=== PATIENT | female | born 2000 | race African-American/Black ===

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

== ENCOUNTER 2021-01-20 12:52 | Outpatient (CLI) | payer OTHER, SELFPAY ==
--- NOTE | ~2021-01-20 | US_ITS ---
EXAMINATION: US OB follow up EXAM DATE: 01/20/2021 13:34 INDICATION: Routine care. Early 3rd trimester. TECHNIQUE: Pelvic obstetrical transabdominal sonogram was performed by a technologist. There are mu ltiple grayscale and Doppler images available for interpretation. Comparison is made to prior examina tion from 08/29/2020. FINDINGS: There is a single fetus identified in vertex presentation with a heart rate of 166 beats pe r minute. The placenta is located in the anterior position. There is no sonographic evidence of retr oplacental hemorrhage identified. The amniotic fluid index is 15.0 centimeters, which is normal. BIOMETRIC DATA: Biparietal diameter (BPD): 7.5 cm ----------------> 30 weeks 1 day. Head circumference (HC): 27.5 cm ----------------> 30 weeks 0 days. Abdominal circumference (AC): 25.7 cm ----------> 29 weeks 6 days. Femur length (FL): 5.6 cm --------------------------> 29 weeks 3 days. These measurements are concordant. HC/AC ratio is 1.07 (The 5th -- 95th percentile range is 0.98-1.19. Estimated weight is 1451 g +/- 218 g. This is the 94th percentile when the currently reported clinical gestation age 28 weeks 0 days, clinical estimated date of delivery (LEANNE-OPE) 04/14/2021 is use d. estimated gestational age based on measurements from this exam is 29 weeks 6 days, with an e stimated date of delivery (LEANNE-AUA) 04/01. IMPRESSION: 1. Single fetus in vertex presentation with heart rate 166 beats per minute. 2. Estimated weight of 1451 grams, 94th percentile using the currently reported clinical gesta tion age of 28 weeks 0 days, LEANNE(OPE) 04/14. 3. Normal NOLA 15.0 cm. Reviewed, dictated and finalized at location A. IMPRESSION: 1. Single fetus in vertex presentation with heart rate 166 beats per minute. 2. Estimated weight of 1451 grams, 94th percentile using the currently r eported clinical gestation age of 28 weeks 0 days, LEANNE(OPE) 8/3. 3. Normal NOLA 15.0 cm.
== END 2021-01-20 12:53 | disposition home or self-care (01) ==
PROVIDERS: Visit Provider Physician Assistant
DX: Z34.90 Encounter for supervision of normal pregnancy, unspecified, unspecified trimester (principal); Z3A.28 28 weeks gestation of pregnancy
CPT/HCPCS: 76816

== ENCOUNTER 2021-03-04 12:10 | Outpatient (CLI) | payer OTHER, SELFPAY ==
--- NOTE | ~2021-03-04 | US_ITS ---
EXAMINATION: US OB follow up DATE: 03/04/2021 13:05 INDICATION: Large for gestational age during third trimester TECHNIQUE: Real-time ultrasound of the pelvis was performed. The interpreting radiologist was not pre sent for the study. COMPARISON: 08/29/2020 FINDINGS: There is a single living fetus in vertex presentation. The placenta is anterior. heart rate is 145 beats per minute (bpm). The amniotic fluid index is 17.4 cm, which is normal (5th%-95%: 8.1-44. 8 cm at 34 weeks estimated gestational age). The following biometric data were obtained: BPD: 8.7 cm -> 35 weeks 1 days Head circumference: 30.9 cm -> 34 weeks 4 days Abdominal circumference: 29.9 cm -> 33 weeks 6 days Femur length: 6.2 cm -> 32 weeks 2 days These measurements are concordant. Head circumference to abdominal circumference ratio: 1.03 (normal range 0.95-1.11). Estimated weight: 2232 g (+/-) 335 g or 4 lbs. 15 oz. (+/-) 12 oz. IMPRESSION: 1. Single living fetus in vertex presentation with heart rate of 145 bpm. 2. Normal amniotic fluid index of 17.4 cm. 3. Estimated weight is 28th percentile by Hadlock criteria when 04/14/2021 is used as the estimat ed date of delivery (LEANNE). Please correlate with clinical information or earlier ultrasounds for most accurate LEANNE. Reviewed, dictated and finalized at location A. IMPRESSION: 1. Single living fetus in vertex presentation with heart rate of 145 bpm. 2. Normal amniotic fluid index of 17.4 cm. 3. Estimated weight is 28th percentile by Hadlock criteria when 04/14/2021 is used as the estimated date of delivery (LEANNE). Please correlate with clinical information or earlier ultrasounds for most accurate LEANNE.
== END 2021-03-04 12:11 | disposition home or self-care (01) ==
PROVIDERS: Visit Provider Physician Assistant
DX: O35.9 Maternal care for (suspected) fetal abnormality and damage, unspecified (principal); Z3A.30 30 weeks gestation of pregnancy
CPT/HCPCS: 76816

== ENCOUNTER 2021-03-21 04:15 | Inpatient (IN) | payer OTHER, SELFPAY ==
[2021-03-21] VITALS (320 sets, daily range): BP systolic 78–199; BP diastolic 25–179; PULSE 29–254; TEMP 36.2–38.4; O2SAT 72–100; BMI 31.4
--- NOTE | 2021-03-21 04:38 | OBADM ---
This patient, Akhil Bhakta, admitted to the OB room Labor/Delivery/Recovery 103 for observation. Patient/family oriented to hospital policies and general routines including ID bracelet, bed and alarms, visiting hours, pain management, procedures, bathroom and other care routines, personal items, smoking policy, room service/diet, and visiting hours. Patient/Family are encouraged to report perceived risks to care and to ask questions if they do not understand what they are told or what they should do.
--- NOTE | 2021-03-21 05:13 | LDADM ---
This patient, Akhil Bhakta, was admitted to Labor/Delivery/Recovery 103 on 03/21/21 at 04:15. Plans for labor, pain management and were discussed with patient. Patient/family oriented to hospital policies and general routines including ID bracelet, bed and alarms, visiting hours, pain management, procedures, bathroom and other care routines, personal items, smoking policy, room service/diet and guest tray routines, infant security routines, and visiting hours. Patient/Family are encouraged to report perceived risks to care and to ask questions if they do not understand what they are told or what they should do. See OBIX for further documentation.
[2021-03-21] MEDS: LACTATED RINGERS 1,000 ML 125 ML IV CONT ×5 (05:39→21:35)
[2021-03-21] MEDS: AMPICILLIN 2 GM/NS 100 ML 2 GM/100 ML BAG IVPB (05:39)
[2021-03-21 06:00] LABS: Basophils Absolute Auto 0.1 K/mm3 (0.0-0.1); Basophils Percent Auto 0.4 % (0.2-1.2); Eosinophils Absolute Auto 0.3 K/mm3 (0-0.3); Eosinophils Percent Auto 1.9 % (0-4.4); Hematocrit 32.9 % (37.0-47.0); Hemoglobin 10.8 g/dL (12.0-15.0); Immature Granulocyte Absolute 0.18 K/mm3 (0.00-0.031); Immature Granulocyte Percent A 1.3 % (0-0.5); Lymphocytes Absolute Auto 3.81 K/mm3 (0.9-3.2); Lymphocytes Percent Auto 27.3 % (18.3-44.2); Mean Corpuscular HGB Conc 32.8 g/dl (32-36); Mean Corpuscular Hemoglobin 26.5 pg (26-34); Mean Corpuscular Volume 80.6 fl (80-100); Mean Platelet Volume 12.2 fl (7.4-10.4); Monocytes Percent Auto 7.2 % (2.6-8.5); Neutrophils Absolute Auto 8.7 K/mm3 (1.3-6.7); Neutrophils Percent Auto 61.9 % (45.5-73.1); Platelet Count Result 233 k/mm3 (150-375); Red Blood Count 4.08 M/mm3 (4.2-5.4); Red Cell Distribution Width 13.6 % (11.5-14.5)
[2021-03-21 06:10] LABS: Alanine Aminotransferase 9 U/L (4-35); Albumin Level 3.9 g/dL (3.7-5.6); Alkaline Phosphatase 303 U/L (45-116); Anion Gap 7 mmol/L (8-16); Aspartate Amino Transferase 24 U/L (14-36); Bilirubin,Total 0.2 mg/dL (0.2-1.3); Blood Urea Nitrogen 6 mg/dL (8-21); Calcium 9.3 mg/dL (8.9-10.7); Carbon Dioxide 22 mmol/L (22-30); Chloride 106 mmol/L (98-107); Estimated CRCL calculation 124 ml/min; Estimated Glomerular Filt Rate > 60; Glucose 112 mg/dL (65-105); Sodium 135 mmol/L (134-143)
--- NOTE | 2021-03-21 06:24 | WPDANESEPP ---
Anes - Eval Pre Procedure Procedure: labor epidural Date/Time: 03/21/21 06:24 Surgeon: mike Pre Op Diagnosis: Leaking, Side Pain Patient Data Age: 20 Gender: F Height: 1.57 m Weight: 78 kg Last Vital Signs Temp 36.8 C 03/21/21 04:29 Pulse 83 03/21/21 06:01 BP 134/70 03/21/21 06:01 Allergies Allergy/AdvReac Type Severity Reaction Status Date / Time No Known Allergies Allergy Verified 03/21/21 05:38 Home Medications Medication Instructions Recorded Confirmed Type PNV,calcium 43-[id number]-bhwcg acid 1 tablet PO DAILY 03/21/21 03/21/21 History [ Vitamin Plus Low Iron] acyclovir 800 mg PO DAILY 03/21/21 03/21/21 History Laboratory Tests 03/21/21 03/21/21 03/21/21 05:33 05:33 05:33 WBC 14.0 K/mm3 H K/mm3 (4.5-10.0) RBC 4.08 M/mm3 L M/mm3 (4.2-5.4) Hgb 10.8 g/dL L g/dL (12.0-15.0) Hct 32.9 % L % (37.0-47.0) MCV 80.6 fl fl (80-100) MCH 26.5 pg pg (26-34) MCHC 32.8 g/dl g/dl (32-36) RDW 13.6 % % (11.5-14.5) Plt Count 233 k/mm3 k/mm3 (150-375) MPV 12.2 fl H fl (7.4-10.4) Immature Gran % (Auto) 1.3 % H % (0-0.5) Neut % (Auto) 61.9 % % (45.5-73.1) Lymph % (Auto) 27.3 % % (18.3-44.2) Williams % (Auto) 7.2 % % (2.6-8.5) Eos % (Auto) 1.9 % % (0-4.4) Baso % (Auto) 0.4 % % (0.2-1.2) Lymph # (Auto) 3.81 K/mm3 H K/mm3 (0.9-3.2) Williams # (Auto) 1.0 K/mm3 H K/mm3 (0.1-0.6) Eos # (Auto) 0.3 K/mm3 K/mm3 (0-0.3) Baso # (Auto) 0.1 K/mm3 K/mm3 (0.0-0.1) Abs Immat Gran (auto) 0.18 K/mm3 H K/mm3 (0.00-0.031) Absolute Neuts (auto) 8.7 K/mm3 H K/mm3 (1.3-6.7) Absolute Nucleated RBC 0.0 K/mm3 K/mm3 (0.0-0.012) Nucleated RBC % 0.0 % % (0.0-0.2) Sodium Potassium Chloride Carbon Dioxide Anion Gap BUN Creatinine Estim Creat Clear Calc Estimated GFR Glucose Uric Acid 4.0 mg/dL mg/dL (3.0-5.9) Calcium Total Bilirubin AST ALT Alkaline Phosphatase Total Protein Albumin Urine Opiates Screen Urine Methadone Screen Ur Barbiturates Screen Ur Phencyclidine Scrn Ur Amphetamine Screen U Benzodiazepines Scrn Urine Cocaine Screen U Cannabinoids Screen RPR Pending Hep Bs Antigen HIV 1&2 Ab/P24 Ag 4thGn Rubella IgG Antibody 03/21/21 03/21/21 03/21/21 05:33 05:33 05:33 WBC RBC Hgb Hct MCV MCH MCHC RDW Plt Count MPV Immature Gran % (Auto) Neut % (Auto) Lymph % (Auto) Williams % (Auto) Eos % (Auto) Baso % (Auto) Lymph # (Auto) Williams # (Auto) Eos # (Auto) Baso # (Auto) Abs Immat Gran (auto) Absolute Neuts (auto) Absolute Nucleated RBC Nucleated RBC % Sodium Potassium Chloride Carbon Dioxide Anion Gap BUN Creatinine Estim Creat Clear Calc Estimated GFR Glucose Uric Acid Calcium Total Bilirubin AST ALT Alkaline Phosphatase Total Protein Albumin Urine Opiates Screen Urine Methadone Screen Ur Barbiturates Screen Ur Phencyclidine Scrn
[2021-03-21 06:32] LABS: Amphetamine Screen Urine Negative (Negative); Barbiturate Screen Urine Negative (Negative); Benzodiazepines Screen Urine Negative (Negative); Cannabinoid Screen Urine Positive (Negative); Cocaine Screen Urine Negative (Negative); Methadone Screen Urine Negative (Negative); Opiate Screen Urine Negative (Negative); Phencyclidine Screen Urine Negative (Negative)
--- NOTE | 2021-03-21 06:38 | PM.IMHP ---
H&P: HPI History of Present Illness Date/Time: 03/21/21 06:18 Akhil is a 20yo @ 36.4wks (LEANNE 04/14/21) who presented to L&D w/ painful contractions and concern for leakage of fluid since 2129 on 03/16/21. ROM + was collected and was positive; she has been aleksey on the monitor (cervix 1/75/-3); heart rate tracing is reassuring and she denies fever or tenderness (WBC 14)-- so no overt concerns for chorioamnionitis at this time. She reports care with Dr. Farrell ( not available, but pt endorses being GBS +), so all labs have been ordered. She was also found to have elevated blood pressures; she denies ORTIZ, vision changes, CP, or SOB. 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 Chief Complaint: pain and leakag of fluid Review of Systems Review of Systems: All systems reviewed & are unremarkable except as noted in HPI and below (HPI) [facility] Social History Social History Smoking status: Never smoker Substance use: never Gender identity (if verbalized by the patient): Female Spiritual care concerns: No Meds Home Medications and Allergies Home Medications Medication Instructions Recorded Confirmed Type PNV,calcium 16-[id number]-[id number] acid 1 tablet PO DAILY 03/21/21 03/21/21 History [ Vitamin Plus Low Iron] acyclovir 800 mg PO DAILY 03/21/21 03/21/21 History Allergies Allergy/AdvReac Type Severity Reaction Status Date / Time No Known Allergies Allergy Verified 03/21/21 05:38 Vital Signs Vital Signs - 24 hr 03/21/21 04:29 03/21/21 04:35 03/21/21 04:46 Temperature 36.8 C Pulse Rate 106 H 85 89 Blood Pressure 137/107 H 123/63 143/83 H 03/21/21 05:01 03/21/21 06:01 Temperature Pulse Rate 85 83 Blood Pressure 129/65 134/70 Exam Const: General: cooperative, healthy appearing and in distress (with contractions) moderate Resp: Effort & Inspection: normal respiratory effort and able to speak in complete sentences Cardio: Rate: regular rate GI: GI Palp: No abdominal tenderness and Yes Soft to palpation : Other: FHT's: 140's/ mod mae/ + accels/ no decels - cat 1 TOCO: coupled contractions q5min Cervix: 1/75/-3 Membranes: ROM+ positive for ROM Presentation: cephalic H&P: Results Labs Labs: Short CBC 03/21/21 Range/Units 05:33 WBC 14.0 H (4.5-10.0) K/mm3 Hgb 10.8 L (12.0-15.0) g/dL Hct 32.9 L (37.0-47.0) % Plt Count 233 (150-375) k/mm3 BMP 03/21/21 05:33 Sodium 135 Potassium 4.0 Chloride 106 Carbon Dioxide 22 BUN 6 L Creatinine 0.60 L Glucose 112 H Calcium 9.3 Liver Function 03/21/21 Range/Units 05:33 Total Bilirubin 0.2 (0.2-1.3) mg/dL AST 24 (14-36) U/L ALT 9 (4-35) U/L Alkaline Phosphatase 303 H (45-116) U/L Albumin 3.9 (3.7-5.6) g/dL Assessment and Plan Assessment and plan (1) premature rupture of membranes (PPROM) with onset of labor after 24 hours of rupture in third trimester, antepartum: Code(s): O42.113 - premature rupture of membranes, onset of labor more than 24 hours following rupture, third trimester Status: Acute (2) Elevated blood pressure affecting in third trimester, antepartum: Code(s): O16.3 - Unspecified maternal hypertension, third trimester Status: Acute Additional Plan - Admit to L&D - Ampicillin started; will continue to monitor very closely for signs of chorio-- currently afebrile w/o tenderness and FHT reassuring - Continuous monitoring - Pitocin to be started after epidural to obtain adequate contractions - Anesthesia consult for epidural - BP monitoring; pt asymptomatic, labs pending
--- NOTE | 2021-03-21 06:38 | WPDHPUPDATE1 ---
History and Physical Update Update Date/Time: 03/21/21 06:38 History and Physical has been reviewed, including an updated exam of the patient. There are NO changes in the patient's condition. Risks, benefits, and alternatives have been discussed and questions answered. Patient agrees to proceed with procedure.
[2021-03-21 07:11] LABS: HIV 1/2 Ab P24 Ag Result Negative (Negative); Rubella IgG Antibody 9.8 IU/ML
--- NOTE | 2021-03-21 07:24 | WPDANESEPP ---
Anes - Eval Pre Procedure Procedure: Labor Epidural Date/Time: 03/21/21 07:24 Surgeon: Jami Preop Diagnosis: Labor Pain Pre Op Diagnosis: Leaking, Side Pain Patient Data Age: 20 Gender: F Height: 1.57 m Weight: 78 kg Last Vital Signs Temp 36.8 C 03/21/21 04:29 Pulse 87 03/21/21 07:23 BP 107/67 03/21/21 07:23 Pulse Ox 98 03/21/21 07:23 Allergies Allergy/AdvReac Type Severity Reaction Status Date / Time No Known Allergies Allergy Verified 03/21/21 05:38 Home Medications Medication Instructions Recorded Confirmed Type PNV,calcium 04-lewx-[id number] acid 1 tablet PO DAILY 03/21/21 03/21/21 History [ Vitamin Plus Low Iron] acyclovir 800 mg PO DAILY 03/21/21 03/21/21 History Laboratory Tests 03/21/21 03/21/21 03/21/21 05:33 05:33 05:33 WBC 14.0 K/mm3 H K/mm3 (4.5-10.0) RBC 4.08 M/mm3 L M/mm3 (4.2-5.4) Hgb 10.8 g/dL L g/dL (12.0-15.0) Hct 32.9 % L % (37.0-47.0) MCV 80.6 fl fl (80-100) MCH 26.5 pg pg (26-34) MCHC 32.8 g/dl g/dl (32-36) RDW 13.6 % % (11.5-14.5) Plt Count 233 k/mm3 k/mm3 (150-375) MPV 12.2 fl H fl (7.4-10.4) Immature Gran % (Auto) 1.3 % H % (0-0.5) Neut % (Auto) 61.9 % % (45.5-73.1) Lymph % (Auto) 27.3 % % (18.3-44.2) Carson % (Auto) 7.2 % % (2.6-8.5) Eos % (Auto) 1.9 % % (0-4.4) Baso % (Auto) 0.4 % % (0.2-1.2) Lymph # (Auto) 3.81 K/mm3 H K/mm3 (0.9-3.2) Carson # (Auto) 1.0 K/mm3 H K/mm3 (0.1-0.6) Eos # (Auto) 0.3 K/mm3 K/mm3 (0-0.3) Baso # (Auto) 0.1 K/mm3 K/mm3 (0.0-0.1) Abs Immat Gran (auto) 0.18 K/mm3 H K/mm3 (0.00-0.031) Absolute Neuts (auto) 8.7 K/mm3 H K/mm3 (1.3-6.7) Absolute Nucleated RBC 0.0 K/mm3 K/mm3 (0.0-0.012) Nucleated RBC % 0.0 % % (0.0-0.2) Sodium Potassium Chloride Carbon Dioxide Anion Gap BUN Creatinine Estim Creat Clear Calc Estimated GFR Glucose Uric Acid 4.0 mg/dL mg/dL (3.0-5.9) Calcium Total Bilirubin AST ALT Alkaline Phosphatase Total Protein Albumin Urine Opiates Screen Urine Methadone Screen Ur Barbiturates Screen Ur Phencyclidine Scrn Ur Amphetamine Screen U Benzodiazepines Scrn Urine Cocaine Screen U Cannabinoids Screen RPR Pending Hep Bs Antigen HIV 1&2 Ab/P24 Ag 4thGn Rubella IgG Antibody Blood Type Antibody Screen 03/21/21 03/21/21 03/21/21 05:33 05:33 05:33 WBC RBC Hgb Hct MCV MCH MCHC RDW Plt Count MPV Immature Gran % (Auto) Neut % (Auto) Lymph % (Auto) Carson % (Auto) Eos % (Auto) Baso % (Auto) Lymph # (Auto) Carson # (Auto) Eos # (Auto) Baso # (Auto) Abs Immat Gran (auto) Absolute Neuts (auto) Absolute Nucleated RBC Nucleated RBC % Sodium Potassium Chloride Carbon Dioxide Anion Gap BUN Creatinine Estim Creat Clear Calc Estimated GFR Glucose Uric Acid Calcium Total Bilirubin AST ALT Alkaline Phosphatase Total Protein Albumin Urine Opiates Screen
[2021-03-21] MEDS: OXYTOCIN 30 UNITS/NS 500 ML 30 UNITS/500 ML BAG IV CONT (07:33)
[2021-03-21 08:09] LABS: Hepatitis B Surface Antigen Negative (Negative)
--- NOTE | 2021-03-21 09:16 | PM.OBPNLAB ---
Pain Control Date/time seen: 03/21/21 09:16 Pain control: epidural Pelvic Exam Dilation (cm): 2 (.5) Effacement (%): 70 station: -2 Amniotic membrane status: Ruptured (SROM; forebag AROMed @ 0915-- IUPC placed) Contractions Monitor mode: External Contraction frequency: 2 Contraction pattern: Regular Status status: Category ll Comments: 140's/ mod mae/ + accels/ occasional variable - reassuring Assessment and Plan Pitocin rate (mU/min): 4 Assessment: induction ongoing Plan: continuous present management Comments: - continue amp, no signs of chorio - clear fluid noted when forebag ruptured
[2021-03-21] MEDS: AMPICILLIN 1 GM/NS 50 ML 1 GM/50 ML BAG IVPB ×4 (09:22→21:27)
[2021-03-21] MEDS: ACETAMINOPHEN 500 MG TABLET 1000 MG PO (22:40)
[2021-03-21] MEDS: GENTAMICIN SULFATE INJ 305 MG in DEXTROSE 5% 100 ML 107.63 MG IVPB (23:42)
[2021-03-22] VITALS (30 sets, daily range): BP systolic 101–153; BP diastolic 52–88; PULSE 79–135; RESP 14–18; TEMP 36.6–38.9; O2SAT 84–100
[2021-03-22] MEDS: miSOPROStol 200 MCG TABLET 800 MCG (02:01)
--- NOTE | 2021-03-22 02:07 | PM.OBPRVD ---
OB - Delivery Note Procedure Delivery date: 03/22/21 events: Premature Rupture of Membrane Intrapartal events: Prolonged Active Phase and Chorioamnionitis (on amp/gent) Induction method: per pitocin protocol Delivery augmentation: rupture of membranes Delivery monitor: external FHT and internal uterine Route of delivery: Laceration Description: None Quantitative Blood Loss (ml): 150 Anesthesia type: Epidural Disposition: floor Baby Date of : 03/22/21 Time of : 01:40 Weeks of gestation at delivery: 36 (.5) Infant gender: Male Weight (pounds): 6 Weight (ounces): 7 presentation: vertex position: Right Occiput Anterior Placenta delivery description: Expressed cord vessel description: 3 Vessels score one minute: 6 score five minutes: 9 Narrative: Patient had a protracted labor pattern and did develop fever. She was diagnosed with chorioamnionitis and started on Gentamicin. She was already on ampicillin due to prematurity. Patient then endorsed significant pelvic pain and pressure. Her epidural was bolused by anesthesia and she was then comfortable. She was examined and found be completely dilated. With good maternal effort she pushed for approximately 45 minutes. She delivered the head over intact perineum. No nuchal cord was palpated. She then easily delivered the shoulders and body without complications. The umbilical cord was then clamped and cut. The baby was taken to warmer by the pediatric nurse for evaluation. After stimulation spontaneous cry was heard. A segment of the cord was collected for cord gases. The remaining cord blood was collected for typing. With Pitocin running and gentle downward traction on the cord, the placenta delivered without complications. Brisk bleeding was then noted and a bimanual massage was performed, slight uterine atony was noted. Patient was examined and a small right periurethral laceration was noted but hemostatic and was not repaired. Misoprostol 600mcg was placed rectally. Sponge, lap, and instrument counts were correct at the end the procedure. Mom and baby were left bonding in the birthing suite in stable condition.
[2021-03-22] MEDS: OXYTOCIN 30 UNITS/NS 500 ML 30 UNITS/500 ML BAG 125 UNITS IV CONT (02:21)
[2021-03-22] MEDS: AMPICILLIN 1 GM/NS 50 ML 1 GM/50 ML BAG IVPB (04:00)
[2021-03-22] MEDS: ACETAMINOPHEN 500 MG TABLET 1000 MG PO (04:06)
[2021-03-22] MEDS: IBUPROFEN 600 MG TABLET PO ×2 (06:03→15:01)
--- NOTE | 2021-03-22 06:40 | PC.NURSE ---
0504 on 03/22/2021 Patient transferred to post room #286 via wheelchair. Support person present. Oriented to unit, room, information board, rooming in, admission packet and security measures. Patient verbalizes understanding.
[2021-03-22] MEDS: SODIUM CHLORIDE 0.9% IV 100 ML 50 ML (09:19)
[2021-03-22] MEDS: AMPICILLIN 2 GM/NS 100 ML 2 GM/100 ML BAG IVPB ×3 (09:19→21:16)
--- NOTE | 2021-03-22 11:15 | PM.OBPNVD ---
OB - PN: Subj Subjective Date/time seen: 03/22/21 11:09 PPD #0 Akhil reports doing well today. She is sore but otherwise reports her pain is controlled w/ PO meds. She reports her bleeding is light. She has tolerated regular diet. She has voided and passed gas. She has ambulated and already showered today. She has been continued on antibiotics for chorio (last fever @ 0500 this morning). She is bottle feeding. She would like her son circumcised. She has had elevated blood pressures; denies ORTIZ, vision changes, CP, SOB. She denies chills, N/V, palpitations, or dizziness. OB - PN: Obj Data Labs CBC & Chem 7: 03/22/21 14:59 03/22/21 15:00 Labs: Laboratory Results - last 24 hr 03/22/21 03/22/21 03/22/21 14:59 15:00 16:29 WBC 18.8 H RBC 3.59 L Hgb 9.3 L Hct 29.1 L MCV 81.1 MCH 25.9 L MCHC 32.0 RDW 14.0 Plt Count 192 MPV 11.4 H Immature Gran % (Auto) 1.1 H Neut % (Auto) 71.9 Lymph % (Auto) 17.3 L Lander % (Auto) 9.0 H Eos % (Auto) 0.5 Baso % (Auto) 0.2 Lymph # (Auto) 3.25 H Lander # (Auto) 1.7 H Eos # (Auto) 0.1 Baso # (Auto) 0.0 Abs Immat Gran (auto) 0.20 H Absolute Neuts (auto) 13.6 H Absolute Nucleated RBC 0.0 Nucleated RBC % 0.0 Sodium 136 Potassium 3.7 Chloride 106 Carbon Dioxide 23 Anion Gap 7 L BUN 8 Creatinine 0.80 Estim Creat Clear Calc 95 Estimated GFR > 60 Glucose 75 Calcium 8.7 L Total Bilirubin 0.6 AST 32 ALT 9 Alkaline Phosphatase 214 H Total Protein 6.0 L Albumin 3.0 L U Random Total Protein 17 Urine Creatinine 35.6 Protein/Creat Ratio 2 0.48 H OB - PN A/P Assessment and Plan (1) delivery: Code(s): O60.10X0 - labor with delivery, unspecified trimester, not applicable or unspecified Status: Acute (2) Vaginal delivery: Code(s): O80 - Encounter for full-term uncomplicated delivery Status: Acute (3) Pre-eclampsia: Qualifiers: Trimester: third trimester Qualified Code(s): O14.93 - Unspecified pre-eclampsia, third trimester Code(s): O14.90 - Unspecified pre-eclampsia, unspecified trimester Status: Acute (4) Chorioamnionitis: Qualifiers: Fetus number: single or unspecified fetus Trimester: third trimester Qualified Code(s): O41.1230 - Chorioamnionitis, third trimester, not applicable or unspecified Code(s): O41.1290 - Chorioamnionitis, unspecified trimester, not applicable or unspecified Status: Acute Plan day: 0 Comments: - Continue amp/gent x 24hrs ; last fever 0500 on 03/22/21 - Labs stable - BPs in normal to mild range; pt asymptomatic - Meeting milestones; likely d/c home on 03/24/21 - Son circumcised w/o issue Time Spent With Patient Time: Total time spent is greater than 50% in coordination of care (as documented) at patient's floor/unit and/or counseling patient: Review of Systems Review of Systems: All systems reviewed & are unremarkable except as noted in HPI and below (HPI) Exam Const: General: cooperative, healthy appearing, comfortable and no acute distress Resp: Effort & Inspection: normal respiratory effort and able to speak in complete sentences Auscultation: clear to auscultation bilaterally Cardio: Rate: regular rate GI: Inspection: normal to inspection and non-distended GI Palp: No abdominal tenderness and Yes Soft to palpation Auscultation: normal bowel sounds : Other: fundus firm; mild tendeness Skin: General skin exam: normal color Neuro: General: patient oriented x3 Extrem: General: normal to inspection Psych: Appearance: grossly normal Affect: normal affect Attitude: cooperative
[2021-03-22] MEDS: ACETAMINOPHEN 325 MG TABLET 650 MG PO (15:02)
[2021-03-22 15:18] LABS: Basophils Percent Auto 0.2 % (0.2-1.2); Eosinophils Absolute Auto 0.1 K/mm3 (0-0.3); Eosinophils Percent Auto 0.5 % (0-4.4); Hematocrit 29.1 % (37.0-47.0); Hemoglobin 9.3 g/dL (12.0-15.0); Immature Granulocyte Percent A 1.1 % (0-0.5); Lymphocytes Absolute Auto 3.25 K/mm3 (0.9-3.2); Lymphocytes Percent Auto 17.3 % (18.3-44.2); Mean Corpuscular Hemoglobin 25.9 pg (26-34); Mean Corpuscular Volume 81.1 fl (80-100); Mean Platelet Volume 11.4 fl (7.4-10.4); Monocytes Absolute Auto 1.7 K/mm3 (0.1-0.6); Neutrophils Absolute Auto 13.6 K/mm3 (1.3-6.7); Neutrophils Percent Auto 71.9 % (45.5-73.1); Platelet Count Result 192 k/mm3 (150-375); Red Blood Count 3.59 M/mm3 (4.2-5.4); White Blood Count 18.8 K/mm3 (4.5-10.0)
[2021-03-22 15:28] LABS: Alanine Aminotransferase 9 U/L (4-35); Alkaline Phosphatase 214 U/L (45-116); Anion Gap 7 mmol/L (8-16); Aspartate Amino Transferase 32 U/L (14-36); Bilirubin,Total 0.6 mg/dL (0.2-1.3); Blood Urea Nitrogen 8 mg/dL (8-21); Calcium 8.7 mg/dL (8.9-10.7); Carbon Dioxide 23 mmol/L (22-30); Chloride 106 mmol/L (98-107); Estimated CRCL calculation 95 ml/min; Estimated Glomerular Filt Rate > 60; Glucose 75 mg/dL (65-105); Potassium 3.7 mmol/L (3.4-5.0); Sodium 136 mmol/L (134-143)
[2021-03-22 16:41] LABS: Creatinine Urine 35.6 mg/dL; Total Protein Urine Random 17 mg/dL; Ur Ttl Prot Creatinine Ratio 0.48 mg/mg (0-0.20)
--- NOTE | 2021-03-22 18:59 | PC.NURSE ---
03/22/2021 at 1840. Upon my completion of my assessment of Akhil, I asked the patient her taking Acyclovir while she was . I took it sometimes . It made me sick. I discussed the importance of Akhil the possibility of transferring the HSV to baby. I discussed the high importance of using excellent hand hygiene and calling the DrHarsh for medication if she notices she EVER has an outbreak. Akhil states her significant other is unaware of her taking acyclovir and her having HSV antibodies. We discussed if her significant other develops any symptoms he also needs to contact his doctor immediately. I then told mother that baby may be effected neurologically by the HSV which may manifest itself as seizures, poor eating, not acting right, etc. And, if baby shows ANY signs like these she should contact baby's doctor immediately. Mother states understanding.
[2021-03-22] MEDS: GENTAMICIN SULFATE INJ 305 MG in DEXTROSE 5% 100 ML 107.63 MG IVPB (23:30)
[2021-03-23 04:26] LABS: Hemoglobin 9.1 g/dL (12.0-15.0)
[2021-03-23] MEDS: AMPICILLIN 2 GM/NS 100 ML 2 GM/100 ML BAG IVPB (05:56)
[2021-03-23 07:45] VITALS: BP 116/71; PULSE 73; RESP 16; TEMP 36.6; O2SAT 100
[2021-03-23 07:57] LABS: Rapid Plasma Reagin Non-Reactive (NonReactive)
[2021-03-23] MEDS: POLYSACCHARIDE IRON COMPLEX 150 MG CAPSULE PO ×2 (08:58→16:59)
[2021-03-23] MEDS: DOCUSATE SODIUM 100 MG CAPSULE PO ×2 (08:58→16:59)
[2021-03-23] MEDS: IBUPROFEN 600 MG TABLET PO (08:59)
--- NOTE | 2021-03-23 11:08 | PCCCNOTE ---
Addendum entered by CARLOS Briggs 03/23/21 14:09: 1400: Received email from [facility] that states: The information has been reviewed and assessed by a Assistant Merchandise Manager. The information you provided met the criteria for a Child Welfare Referral to offer services/provide support to the involved family. Addendum entered by Kaia Abdi, BRIDGE CONSTRUCTION INSPECTOR 03/23/21 11:34: 1130: Spoke with Silvestre with [facility] who reports they are not investigating this [facility] report. Original Note: Care Coordination: Met with pt. after receiving a referrals that reports marijuana use during . Spoke with pt. and pt's boyfriend at bedside. Pt. reports using marijuana during due to it stimulating her appetite. Baby Boy's urine drug screen was also positive; his meconium is pending at this time. Pt. reports she and baby boy will be living with her boyfriend Lamine in [place], [place]. Pt. reports this is her first baby and denies any prior [facility] involvement. Pt. reports having support from both hers' and Lamine's family. Pt. reports having all necessary supplies for Baby Boy and denies needs. Pt. reports being set up with [facility] [employer] but not yet WIC. resources were provided for pt. Online report filed with [facility] - Ref # [id number]. Updates given to JUDY Vail.
--- NOTE | 2021-03-23 11:45 | PM.OBPNVD ---
OB - PN: Subj Subjective Date/time seen: 03/23/21 11:45 PPD#1 Akhil reports doing well today. Her pain is controlled w/ PO meds. She reports her bleeding is light. She has tolerated regular diet. She has voided and passed gas. She has ambulated. She has been continued on antibiotics for chorio (last fever @ 0500 on 03/22/21). She is bottle feeding. She has had mildly elevated blood pressures; denies ORTIZ, vision changes, CP, SOB. She denies chills, N/V, palpitations, or dizziness. She desires depo-provera until nexplanon can be placed. OB - PN: Obj Data Labs CBC & Chem 7: 03/23/21 04:19 03/22/21 15:00 OB - PN A/P Plan day: 1 Plan: routine care and discharge home (tomorrow if afebrile after antibiotics have compelted) Comments: - Pelvic rest; take meds as prescribed - Pt desires depo-provera before discharge - ER precautions discussed: fever, n/v/abd pain, bleeding, htn - Pt to f/u w/ Dr. Farrell in 4wks. Time Spent With Patient Time: Total time spent is greater than 50% in coordination of care (as documented) at patient's floor/unit and/or counseling patient: Review of Systems Review of Systems: All systems reviewed & are unremarkable except as noted in HPI and below (HPI) Exam Const: General: cooperative, healthy appearing and comfortable Resp: Effort & Inspection: normal respiratory effort and able to speak in complete sentences Auscultation: clear to auscultation bilaterally Cardio: Rate: regular rate GI: Inspection: normal to inspection and non-distended GI Palp: No abdominal tenderness and Yes Soft to palpation Auscultation: normal bowel sounds : Other: fundus firm Skin: General skin exam: normal color Neuro: General: patient oriented x3 Extrem: General: normal to inspection Psych: Appearance: grossly normal Affect: normal affect Attitude: cooperative
--- NOTE | 2021-03-23 13:09 | WPDANLDPN2 ---
Anes-Prog Note L&D Date/Time: 03/23/21 13:09 Comfortable throughout: labor and delivery Neuraxial method: epidural Epidural/Spinal procedure site: clean & non-tender Neuro status: Neuro function grossly intact. Cardiovascular status: normal Respiratory status: normal Airway patency: baseline Mental status: baseline Post-Op hydration status: normal Vital Signs: Last Vital Signs Temp 36.6 C 03/23/21 07:45 Pulse 73 03/23/21 07:45 Resp 16 03/23/21 07:45 BP 116/71 03/23/21 07:45 Pulse Ox 100 03/23/21 07:45 Pain score (VAS): no complaints I/O: Intake & Output 03/22/21 03/23/21 03/23/21 23:59 07:59 15:59 Intake Total 100 Balance 100 Post-procedural complaints: none Patient feedback: Patient satisfied with anesthetic care.
[2021-03-23] MEDS: medroxyPROGESTERone ACETATE IM 150 MG/ML SYR IM (16:59)
[2021-03-23 19:32] VITALS: BP 141/68; PULSE 64; RESP 16; TEMP 36.7; O2SAT 100
[2021-03-24 08:10] VITALS: BP 122/64; PULSE 126; RESP 16; TEMP 36.9; O2SAT 98
[2021-03-24] MEDS: POLYSACCHARIDE IRON COMPLEX 150 MG CAPSULE PO (08:53)
[2021-03-24] MEDS: DOCUSATE SODIUM 100 MG CAPSULE PO (08:54)
[2021-03-24] MEDS: MEASLES,MUMPS,RUBELLA VACCINE 0.5 ML VIAL SUB-Q (08:55)
--- NOTE | 2021-03-24 11:00 | PC.NURSE ---
Patient viewed the discharge video Mother & Baby Care, The First Two Weeks . RN pulled up the [facility] web site on the patient's phone so that she could view it. Patient was given the opportunity and encouraged to ask questions. Patient verbalized understanding of information shared and has been given the mother/baby guide for home reference.
[2021-03-25 08:34] VITALS: BP 117/63; PULSE 74; RESP 20; TEMP 36.9; O2SAT 100
--- NOTE | 2021-04-01 11:24 | PM.OBDSVD ---
DS: Admitting Diagnosis Admitting Diagnosis Admitting Diagnosis: Leakage of fluid and abdominal pain DS: Discharge Diagnosis Discharge Diagnosis (1) premature rupture of membranes (PPROM) with onset of labor after 24 hours of rupture in third trimester, antepartum: Code(s): O42.113 - premature rupture of membranes, onset of labor more than 24 hours following rupture, third trimester Status: Acute (2) Pre-eclampsia: Qualifiers: Trimester: third trimester Qualified Code(s): O14.93 - Unspecified pre-eclampsia, third trimester Code(s): O14.90 - Unspecified pre-eclampsia, unspecified trimester Status: Acute (3) Chorioamnionitis: Qualifiers: Fetus number: single or unspecified fetus Trimester: third trimester Qualified Code(s): O41.1230 - Chorioamnionitis, third trimester, not applicable or unspecified Code(s): O41.1290 - Chorioamnionitis, unspecified trimester, not applicable or unspecified Status: Acute (4) Vaginal delivery: Code(s): O80 - Encounter for full-term uncomplicated delivery Status: Acute (5) delivery: Code(s): O60.10X0 - labor with delivery, unspecified trimester, not applicable or unspecified Status: Acute OB - DS: Summary OB Procedures : Ultrasound OB Procedures Intrapartum: Spontaneous Vag Delivery OB Procedures: : None Peripartum Data Infant Delivery Method: Natural Vaginal Laceration Description: None complications: none [place] 1: Gender: Male Disposition of : home Status at Discharge Functional status at discharge: independent ambulation Overall status at discharge: patient is back to baseline Time Spent with Patient Time attestation: Total time spent providing and/or coordinating discharge services: Time spent: Less than 30 minutes Exam Const: General: cooperative, healthy appearing, comfortable and no acute distress Resp: Effort & Inspection: normal respiratory effort and able to speak in complete sentences Auscultation: clear to auscultation bilaterally Cardio: Rate: regular rate GI: Inspection: normal to inspection and non-distended GI Palp: No abdominal tenderness and Yes Soft to palpation Auscultation: normal bowel sounds : Other: fundus firm Skin: General skin exam: normal color Neuro: General: patient oriented x3 Extrem: General: normal to inspection Psych: Appearance: grossly normal Affect: normal affect Attitude: cooperative DS: Data Data Completed and Pending Completed studies during hospitalization: Pending at discharge 03/22/21 01:40 Surgical [PTH] Routine Discharge Plan Discharge Attending physician on discharge: Jade Felipe Discharging Clinician: Jade Felipe Anticipated Discharge Date/Time: 03/24/21 08:00 Patient Disposition: Home, Self-Care Activity: pelvic rest Diet: regular Discharge Instructions: Education: Mom and Baby Guide and Preeclampsia Handout Given to: Mother Follow-Up: Call your delivering provider's office for an appointment to be seen in: 4 Weeks Mom and baby should come to the [facility] for the follow-up appointment. Appointment Date/Time: March 25, 2021 at 8:00 am What to expect at your follow-up visit: Physical Assessment Call [phone] if you are unable to keep your appointment time. BREAST CARE: * Wear a snug supportive bra. * For engorgement discomfort: Bottle Feeding: * May apply ice packs EPISIOTOMY/PERINEAL CARE: * Until bleeding stops, use your kera bottle after urinating * Change your pad frequently throughout the day * You may take sitz baths several times a day (fill your bathtub with warm water and soak for 20 minutes.) Do NOT bathe in the water * No tub baths until seen by your physician - You may shower ACTIVITY: * Rest as much as possible. * Do not exercise
== END 2021-03-24 12:34 | disposition home or self-care (01) | DRG 560 ==
LOC: ANHLDR 04:39 → ANHOB2 03-23 12:12 → ANHLDR 03-26 09:58 → ANHOB2 03-26 09:58
PROVIDERS: Admitting Provider Obstetrics & Gynecology; Visit Provider Obstetrics & Gynecology
DX: O75.2 Pyrexia during labor, not elsewhere classified (principal); O42.913 Preterm premature rupture of membranes, unspecified as to length of time between rupture and onset of labor, third trimester; O99.824 Streptococcus B carrier state complicating childbirth; O41.1230 Chorioamnionitis, third trimester, not applicable or unspecified; O76 Abnormality in fetal heart rate and rhythm complicating labor and delivery; O98.52 Other viral diseases complicating childbirth; B00.9 Herpesviral infection, unspecified; Z3A.36 36 weeks gestation of pregnancy; Z37.0 Single live birth
CPT/HCPCS: 36415; 80053; 80307; 82570; 84112; 84156; 84550; 85014; 85018; 85025; 86592; 86703; 86762; 86850; 86900; 86901; 87340; 88307; 90710; A9270; G0432; J0290; J1050; J1580; J2590; J2795; J7120

== ENCOUNTER 2023-02-08 14:27 | Emergency (ER) | payer OTHER, SELFPAY ==
[2023-02-08 15:26] VITALS: BP 125/77; PULSE 88; RESP 16; TEMP 36.3; O2SAT 100
--- NOTE | 2023-02-08 16:58 | PC.NURSE ---
PT DECLINES TO STAY AND BE SEEN, WALKED OUT IN NAD W/ STEADY GAIT.
== END 2023-02-08 17:19 | disposition left against medical advice (07) ==
PROVIDERS: Emergency Provider Emergency Medicine
DX: R10.30 Lower abdominal pain, unspecified (principal)
CPT/HCPCS: 81025; 99199

== ENCOUNTER 2024-02-29 13:42 | Emergency (ER) | payer OTHER, SELFPAY ==
--- NOTE | ~2024-02-29 | US_ITS ---
EXAMINATION: US pelvic complete w TV DATE: 02/29/2024 16:33 INDICATION: Left adnexal pain TECHNIQUE: Multiple transabdominal and endovaginal sonographic images of the pelvis were obtained. COMPARISON: None. FINDINGS: The uterus measures 8.0 x 2.9 x 4.2 cm. The endometrial complex measures 3 mm in thickness. 5 mm ane choic nabothian cyst at the cervix. The right ovary measures 3.0 x 2.6 x 1.8 cm. The left ovary measu res 2.4 x 2.3 x 2.2 cm. There are a few subcentimeter anechoic follicles at both ovaries. Vascular fl ow with arterial waveforms also identified at both ovaries on color Doppler. There is a small amount of anechoic free fluid in the pelvis. IMPRESSION: 1. Normal pelvic ultrasound with small amount of likely physiologic anechoic free fluid in the pelvis . Reviewed, dictated and finalized at location A. IMPRESSION: 1. Normal pelvic ultrasound with small amount of likely physiologic anechoic fr ee fluid in the pelvis.
[2024-02-29 13:47] VITALS: BP 115/61; PULSE 71; RESP 16; TEMP 36.5; O2SAT 100
[2024-02-29 14:22] VITALS: BP 121/63; PULSE 67; RESP 14; O2SAT 100
[2024-02-29 15:19] LABS: Alanine Aminotransferase 16 U/L (6-35); Albumin Level 3.9 g/dL (3.5-5.1); Alkaline Phosphatase 65 U/L (38-126); Anion Gap 4 mmol/L (4-12); Aspartate Amino Transferase 31 U/L (14-36); Bilirubin,Total 0.5 mg/dL (0.2-1.3); Blood Urea Nitrogen 10 mg/dL (7-17); Calcium 8.9 mg/dL (8.4-10.2); Carbon Dioxide 28 mmol/L (22-30); Chloride 105 mmol/L (98-107); Estimated CRCL calculation 82 ml/min; Estimated Glomerular Filt Rate > 60; Glucose 73 mg/dL (65-110); Potassium 3.8 mmol/L (3.4-5.0); Sodium 137 mmol/L (137-145)
[2024-02-29 15:35] LABS: Beta HCG Quantitative < 2.39 mIU/ML
--- NOTE | 2024-02-29 16:33 | ED.GENADULT ---
HPI - General Adult General Chief complaint: Abdominal Pain Stated complaint: 4 weeks , left abd pain Time Seen by Provider: 02/29/24 14:22 History of Present Illness HPI narrative: Patient is a 23-year-old female who reports that she may have an ectopic . She had multiple positive tests her arm. [facility] today and they could not identify and told her to come here to have a blood test. She reports that she is SAB 1. No current vaginal bleeding or vaginal discharge. Noted urinary frequency urgency or dysuria. LMP 01/20/2024. She reports she did have some spotting at began this month but she was told not count that as a period. Patient reports she is having some left lower quadrant cramping. Related Data Home Medications Medication Instructions Recorded Confirmed No Home Medications 02/22/24 02/22/24 Allergies Allergy/AdvReac Type Severity Reaction Status Date / Time No Known Allergies Allergy Verified 02/22/24 09:25 Review of Systems Constitutional: Constitutional: Reports no additional constitutional complaints Cardiovascular: Cardiovascular: Reports no additional cardiovascular complaints Respiratory: Respiratory: Reports no additional respiratory complaints Gastrointestinal: Gastrointestinal: Reports no additional gastrointestinal complaints Genitourinary: Genitourinary: Denies abnormal vaginal bleeding, Denies dysuria, Reports pelvic pain and Denies vaginal discharge PMF Past Medical History Medical History (Updated 02/29/24 @ 17:32 by Raul Delgadillo MD) Healthy female adult Surgical History Surgical History (Updated 02/29/24 @ 16:36 by Raul Delgadillo MD) No history of previous surgery Social History Social History (Updated 02/22/24 @ 09:28 by Deysi Mendez CMA) Smoking status: Never smoker Alcohol intake: former Substance use: current Substance use type: marijuana Do You Feel Safe in your Home?: Yes Lack of Transportation: No Lack of Food: Never True Current Housing: I Have Housing Concerned About Future Housing: No Difficulty Paying Gas/Electric Bills: No Difficulty Paying for Meds: No Currently Unemployed: No Education: High School Diploma/GED Difficulty w/ Childcare or Family Care: No Living arrangements: with family Occupation/Education: student Gender identity (if verbalized by the patient): Female Spiritual care concerns: No Exam Narrative: GENERAL: Well-appearing, well-nourished, and in no acute distress. HEAD: Normocephalic, atraumatic. ENT: Mucous membranes moist. CHEST: Clear to auscultation. No respiratory distress. HEART: Regular rate and rhythm. Normal peripheral pulses. ABDOMEN: Soft, nontender, nondistended. EXTREMITIES: Normal range of motion. No edema. SKIN: Warm, dry, no rash. NEURO: Alert and oriented x3. PSYCH: Normal mood and affect. Course Course Emergency Course: Patient resting comfortably. Negative test, normal CMP. Ultrasound also normal. Discharge. Vital Signs Vital signs: Vital Signs Temperature 97.7 F 02/29/24 13:47 Pulse Rate 71 02/29/24 13:47 Respiratory Rate 16 02/29/24 13:47 Blood Pressure 115/61 02/29/24 13:47 Pulse Oximetry 100 02/29/24 13:47 Oxygen Delivery Room Air 02/29/24 13:47 Temperature 97.7 F 02/29/24 13:47 Pulse Rate 67 02/29/24 14:22 Respiratory Rate 14 02/29/24 14:22 Blood Pressure 121/63 02/29/24 14:22 Pulse Oximetry 100 02/29/24 14:22 Oxygen Delivery Room Air 02/29/24 13:47 Medical Decision Making Vital Signs Vital Signs: Vital Signs Temperature 97.7 F 02/29/24 13:47 Pulse Rate 71 02/29/24 13:47 Respiratory Rate 16 02/29/24 13:47 Blood Pressure 115/61 02/29/24 13:47 Pulse Oximetry 100 02/29/24 13:47 Oxygen Delivery Room Air 02/29/24 13:47 Temperature 97.7 F 02/29/24 13:47 Pulse R
== END 2024-02-29 17:54 | disposition home or self-care (01) ==
PROVIDERS: Emergency Provider Emergency Medicine
DX: Z03.89 Encounter for observation for other suspected diseases and conditions ruled out (principal)
CPT/HCPCS: 36415; 76830; 76856; 80053; 84702; 99284

== ENCOUNTER 2025-01-30 00:46 | Emergency (ER) | payer OTHER, SELFPAY ==
--- OUTSIDE RECORDS SUMMARY | 2025-01-30 00:49 | XMS_ITS | Encounter Summary ---
Author Organization [facility] Address [address] [place] [address] Care Team Providers Care Chemical Supervisor Name Role Phone Sandie Zamudio MD Unavailable [phone] Alina Moralez MD Primary Care Provider Nate Sood MD Unavailable [phone] Encounter Details Date Type Department Care Team (Late st Contact Info) Description 11/19/2015 Telephone [facility] - [facility] [address] [place] [id number] Alina Moralez MD [address] [place] [id number] Social History Tobacco Use Types Packs/Day Years Used Date Smoking Tobacco: Never Assessed Comments Unknown Sex and Gender Information Value Date Recorded Sex Assigned at Not on file 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 Gender Identity Not on file Sexual Orientation Not on file documented as of this encounter Plan of Treatment Not on file documented as of this encounter Visit Diagnoses Not on filedocumented in this encounter Additional Health Concerns Infection Onset Date Last Indicated Resolved Time COVID-19 Under Investigation 10/21/2024 10/21/202410/2110/21/2024 9:51 

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
[2025-01-30 00:58] VITALS: BP 117/69; PULSE 99; RESP 18; TEMP 36.6; O2SAT 100
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
--- OUTSIDE RECORDS SUMMARY | 2025-01-30 01:57 | XMS_ITS | Encounter Summary ---
Author Organization [facility] Address [address] [place] [address] Care Team Providers Care Insurance Sales Producer Name Role Phone Sandie Zamudio MD Unavailable Alina Moralez MD Primary Care Provider Nate Sood MD Unavailable [phone] Encounter Details Date Type Department Care Team (Late st Contact Info) Description 11/19/2015 Telephone [facility] [address] [place] [id number] Alina Moralez MD [address] [place] [phone] Social History Tobacco Use Types Packs/Day Years Used Date Smoking Tobacco: Never Assessed Comments Unknown Sex and Gender Information Value Date Recorded Sex Assigned at Not on file Legal Sex Female 5:41 AM FUNDRAISING DIRECTOR Gender Identity Not on file Sexual Orientation Not on file documented as of this encounter Plan of Treatment Not on file documented as of this encounter Visit Diagnoses Not on filedocumented in this encounter Additional Health Concerns Infection Onset Date Last Indicated Resolved Time COVID-19 Under Investigation 10/21/2024 10/21/202410/2110/21/2024 9:51 AM FUNDRAISING DIRECTOR documented as of this encounter Care Teams Insurance Sales Producer Relationship Specialty Start Date End Date Alina Moralez MD [address] [place] [address] PCP - General 08/19/22 10/20/24 Nate Sood MD [address] [place] [address] PCP - Attributed-[place] 11/10/22 08/29/23 Sandie Zamudio MD Resident Student Resident 03/27/15 documented as of this encounter
--- OUTSIDE RECORDS SUMMARY | 2025-01-30 01:57 | XMS_ITS | Clinical Summary ---
Author Organization [facility] Address [address] [place] [address] Care Team Providers Care Bellhop Captain Name Role Phone Sandie Zamudio MD Unavailable [phone] Source Comments [facility],non-owned Affiliates and Associated Physician Practices is amultiple site organization consisting of ambulatory clinics and hospital sitesin [place], [place], [place] and [place]. This disclosure is being madepursuant to the Care Everywhere program and may not contain all information available regarding this patient. Last updated 18.[facility] Allergies No known active allergies Medications * [...] well Assessment & Plan (08/23/2014 4:21 PM MEDICATION CARE MANAGER): Last Depo shot was June 03. Denies [...] been regular and she has no questions. [facility] (well child check) 03/31/2011 Overview (06/01/2013): [...] Type Department Care Team Description 01/28/2025 Telephone [facility] - AIR CARGO SPECIALIST SUPERVISOR [address] [phone] Kelsey Lombardi MD Appointment [...] on file Legal Sex Female 5:41 AM MEDICATION CARE MANAGER Gender Identity Not on file Sexual Orientation Not on file Last Filed Vital Signs Vital Sign Reading Time Taken Comments Blood Pressure 104/47 10/21/2024 8:26 AM MEDICATION CARE MANAGER Pulse 92 10/21/2024 8:26 AM MEDICATION CARE MANAGER Temperature 36.1 C (97 F) 10/21/2024 8:26 AM MEDICATION CARE MANAGER Respiratory Rate 16 10/21/2024 8:26 AM MEDICATION CARE MANAGER Oxygen Saturation 98% 10/21/2024 8:26 AM MEDICATION CARE MANAGER Inhaled Oxygen Concentration - - Weight 69.9 kg (154 lb) 10/21/2024 8:26 AM MEDICATION CARE MANAGER Height 157.5 cm (5' 2 ) 10/21/2024 8:26 AM MEDICATION CARE MANAGER Body Mass Index 28.17 10/21/2024 8:26 AM MEDICATION CARE MANAGER Plan of Treatment Health Maintenance Due Date [...] Probe Negative Negative 12/01/2020 1:38 PM CDT [facility] GC Amplified Probe Negative Negative 12/01/2020 1:38 PM CDT [facility] Microbiology ENTIRE VAGINA / Unknown Collection / Unknown 11/30/2020 5:07 PM CDT 11/30/2020 5:12 PM CDT Narrative [facility] - 12/01/2020 1:38 PM CDT Results based on detection/no detection of ribosomal RNA by amplified method. us Deepa Robles MD LAB - MICROBIOLOGY ORDERABL ES Final Result [facility] [address] [place], [place] [address] [phone] from Last 3 Months or Most Recently Relevant to Health Maintenance Insurance [facility] Advance Directives * Full Code (Latest [...] 4:14 PM 11/30/2020 6:30 PM Care Teams Bellhop Captain Relationship Specialty Start Date End Date Sandie Zamudio MD Resident Student Resident 03/27/15
--- OUTSIDE RECORDS SUMMARY | 2025-01-30 01:57 | XMS_ITS | Referral Summary ---
Author Organization [facility] Address [address] [place] [address] Care Team Providers Care Flight Security Specialist Name Role Phone No, Physician Primary Care Provider [phone] Allergies No known active allergies Medications No known medications Active Problems No known active problems Immunizations Immunization Administration Dates Next Due DTP 03/22/2003 DTaP 06/03/2006, 5,05/18/2002,03/26,01/12/2002 HPV, Quadrivalent 11/15/2014,05/24/2014,06/01/20 13 HPV9 02/25/2020 Hep A, Ped Unspecified 02/12/2005,05/26/2004 Hep A, Pediatric 02/12/2005,05/26/2004 Hep B / HiB 05/18/2002,01/12/2002 Hep B, Adolescent or Pediatric 05/18/2002,2001,2001 HiB 03/22/2003,03/26/2002 Hib (PRP-T) 03/22/2003, 2,03/26/2002,01/12 IPV 06/03/2006, 3,03/26/2002,01/12 Influenza, Quadrivalent, Spl it, Preservative Free, Intramuscular 11/15/2014 Influenza, Unspecified 06/01/2013 MMR 03/24/2021, 0,06/03/2006,12/11 Meningococcal MCV4, Unspecified 06/01/2013 Meningococcal MCV4P (Menactra) 06/01/2013 Pneumococcal Conjugate 7-Valent 03/22/2003,03/26,01/12/2002 Pneumococcal Polysaccharide PPV23 03/22/2003 Pneumococcal, Unspecified 03/22/2003 Polio, Unspecified 03/22/2003 Tdap 01/30/2021,07/25/2015,06/01/2013 Varicella 05/24/2014,12/11/2002 Social History Tobacco Use Types Packs/Day Years Used Date Smoking Tobacco: Never Smokeless Tobacco: Never Alcohol Use Standard Drinks/Week Comments Not Currently 0 (1 standard drink = 0.6 oz pur e alcohol) Personal Safety Answer Date Recorded Getting School Help Needed Not on file 07/01 Comments No Sex and Gender Information Value Date Recorded Sex Assigned at Not on file Legal Sex Female 11:39 AM CDT Gender Identity Not on file Sexual Orientation Not on file Last Filed Vital Signs Vital Sign Reading Time Taken Comments Blood Pressure 102/74 05/07/2024 12:15 PM CDT Pulse 72 06/08/2023 11:50 AM CDT Temperature 37.7 C (99.9 F) 06/08/2023 10:43 AM CDT Respiratory Rate 16 06/08/2023 11:50 AM CDT Oxygen Saturation 100% 06/08/2023 11:50 AM CDT Inhaled Oxygen Concentration - - Weight 63 kg (139 lb) 05/07/2024 12:15 PM CDT Height 157.5 cm (5' 2.01 ) 05/07/2024 12:15 PM C DT Body Mass Index 25.42 05/07/2024 12:15 PM CDT Plan of Treatment Not on file Insurance [facility] [address] Care Teams Flight Security Specialist Relationship Specialty Start Date End Date No, Physician PCP - General 03/24/23
--- OUTSIDE RECORDS SUMMARY | 2025-01-30 01:57 | XMS_ITS | Clinical Summary ---
Author Organization [facility] Address [address] [place] [address] Care Team Providers Care Glost Kiln Placer Name Role Phone No, Physician Primary Care Provider [phone] Allergies No known active allergies Medications No [...] Polio, Unspecified 03/22/2003 Tdap 01/30/2021,07/25/2015,06/01/2013 Varicella 05/24/2014,12/11/2002 Medical History Medical History Date Comments Asthma HSV infection serology only Family History Medical History Relation Name Comments Breast cancer Neg Hx Ovarian cancer Neg Hx Social History Tobacco Use Types Packs/Day Years [...] on file Sexual Orientation Not on file Obstetrics History Para Term AB IAB SAB Ectopic Multiple Livin g Live Births 3 1 1 1 1 Date Outcome GA Total Labor Labor/2nd/3rd Weight Sex Type Anes PTL Dena A1 A5 Name Clin Para 2019 SAB Last Filed Vital Signs Vital Sign Reading [...] 05/07/2024 12:15 PM CDT Plan of Treatment Health Maintenance Due Date Last Done Comments Cervical Cancer Screening 2001 Chlamydia and Gonorrhea (GC/ CT) Screening 2001 Depression Screening 2001 Hepatitis C Screening 2001 Meningococcal B Vaccine (1 o f 2 - Standard) 2017 Regular Well Visit/Exam 18-64 11/11/2019 Influenza Vaccine (#1) 2024 11/15/2014, 2012 DTaP/Tdap/Td Vaccine (9 - Td or Tdap) 01/30/2031 01/30/2021, 07/25/2015, 06/01/2013, Additional history exists Hepatitis B Screening Completed 05/18/2002 , 05/18/2002, 01/12/2002, Additional history exists Pneumococcal vaccine <65 Completed 003, 03/22/2003, 03/22/2003, Additional history exists Varicella Vaccines Completed 05/24/2014, 12/11/2002 HPV Vaccines Completed 02/25/2020, 0302/2015, 05/24/2014, Additional history exists Insurance [facility] Care Teams Glost Kiln Placer Relationship Specialty Start Date End Date No, Physician PCP - General 03/24/23
[2025-01-30] MEDS: ACETAMINOPHEN 325 MG TABLET 650 MG PO (02:51)
[2025-01-30 03:09] VITALS: BP 110/79; PULSE 89; RESP 17; TEMP 36.6; O2SAT 100
== END 2025-01-30 03:11 | disposition home or self-care (01) ==
LOC: ANHED 01:56
PROVIDERS: Emergency Provider Physician Assistant
DX: O9A.211 Injury, poisoning and certain other consequences of external causes complicating pregnancy, first trimester (principal); S99.911A Unspecified injury of right ankle, initial encounter; S69.91XA Unspecified injury of right wrist, hand and finger(s), initial encounter; Z3A.01 Less than 8 weeks gestation of pregnancy; Y01.XXXA Assault by pushing from high place, initial encounter
CPT/HCPCS: 29130; 99283; A9270

== ENCOUNTER 2025-02-01 12:06 | Emergency (ER) | payer OTHER, SELFPAY ==
--- NOTE | ~2025-02-01 | US_ITS ---
EXAMINATION: US OB <=14 wk fetus w TV DATE: 02/01/2025 13:54 INDICATION: Abdominal pain and vaginal bleeding during first trimester of TECHNIQUE: Real-time pelvic ultrasound utilizing both a transvaginal and transabdominal probe was pe rformed. The interpreting radiologist was not present for the study. COMPARISON: None. FINDINGS: The uterus measures 8.3 x 3.2 x 4.0 cm. Endometrial complex measures approximately 8 mm in maximal t hickness with no evident intrauterine gestational sac. The right ovary measures 2.9 x 2.6 x 2.2 cm. The left ovary measures 2.8 x 2.2 x 1.7 cm. Vascular roxanne w identified at both ovaries on color Doppler. 5 mm anechoic region, likely a nabothian cysts at the cervix with no evident internal yolk sac, pole or double deciduous sign to suggest a cervical e ctopic . There is no free fluid in the pelvis. IMPRESSION: 1. No evident intrauterine gestational sac. There is a 5 mm cystic lesion at the cervix which without evident internal yolk sac or double deciduous sign to suggest ectopic in this more likely to represent a nabothian cyst. Recommend correlation with serial beta-hCG levels with repeat imaging as clinically indicated. Reviewed, dictated and finalized at location A. IMPRESSION: 1. No evident intrauterine gestational sac. There is a 5 mm cystic lesion at th e cervix which without evident internal yolk sac or double deciduous sign to mancera ggest ectopic in this more likely to represent a nabothian cyst. Abdullahi mmend correlation with serial beta-hCG levels with repeat imaging as clinically indicated.
[2025-02-01 12:07] VITALS: BP 101/63; PULSE 102; RESP 18; TEMP 36.4; O2SAT 100
--- OUTSIDE RECORDS SUMMARY | 2025-02-01 12:08 | XMS_ITS | Referral Summary ---
Author Organization [facility] Address [address] [place] [address] Care Team Providers Care Gusset Maker Name Role Phone No, Physician Primary Care Provider [phone] Allergies No known active allergies Medications No [...] Plan of Treatment Not on file Insurance [facility] [place] [address] Care Teams Gusset Maker Relationship Specialty Start Date End Date No, Physician PCP - General 03/24/23
--- OUTSIDE RECORDS SUMMARY | 2025-02-01 12:08 | XMS_ITS | Encounter Summary ---
Author Organization [facility] Address [address] [place] [address] Care Team Providers Care Environmental Field Technician Name Role Phone Sandie Zamudio MD Unavailable Alina Moralez MD Primary Care Provider Nate Sood MD Unavailable Encounter Details Date Type Department Care Team (Late st Contact Info) Description 11/19/2015 Telephone [facility] - [facility] [address] [place] [id number] Alina Moralez MD [address] [place] [id number] Social History Tobacco Use Types Packs/Day Years Used Date Smoking Tobacco: Never Assessed Comments Unknown Sex and Gender Information Value Date Recorded Sex Assigned at Not on file Legal Sex Female 5:41 AM TRANSPORT AIRCREWMAN Gender Identity Not on file Sexual Orientation Not on file documented as of this encounter Plan of Treatment Not on file documented as of this encounter Visit Diagnoses Not on filedocumented in this encounter Additional Health Concerns Infection Onset Date Last Indicated Resolved Time COVID-19 Under Investigation 10/21/2024 10/21/202410/2110/21/2024 9:51 AM TRANSPORT AIRCREWMAN documented as of this encounter Care Teams Environmental Field Technician Relationship Specialty Start Date End Date Alina Moralez MD [address] [place] [address] PCP - General 08/19/22 10/20/24 Nate Sood MD [address] [place] [address] PCP - Attributed-[place] Medicaid [place] 11/10/22 08/29/23 Sandie Zamudio MD Resident Student Resident 03/27/15 documented as of this encounter
--- OUTSIDE RECORDS SUMMARY | 2025-02-01 12:08 | XMS_ITS | Clinical Summary ---
Author Organization [facility] Address [address] [place] [address] Care Team Providers Care Criminal Lawyer Name Role Phone No, Physician Primary Care Provider [phone] Allergies No known active allergies Medications No [...] Regular Well Visit/Exam 18-64 11/11/2019 Influenza Vaccine (Season Ended) 2025 11/16/19 15, 06/01/2013 DTaP/Tdap/Td Vaccine (9 - Td or Tdap) 01/30/2031 01/30/2021, 07/25/2015, 06/01/2013, Additional history exists Hepatitis B Screening Completed 05/18/2002 , 05/18/2002, 01/12/2002, Additional history exists Pneumococcal vaccine <65 Completed 003, 03/22/2003, 03/22/2003, Additional history exists Varicella Vaccines Completed 05/24/2014, 12/11/2002 HPV Vaccines Completed 02/25/2020, 02/2015, 05/24/2014, Additional history exists Insurance [facility] Care Teams Criminal Lawyer Relationship Specialty Start Date End Date No, Physician PCP - General 03/24/23
--- OUTSIDE RECORDS SUMMARY | 2025-02-01 12:08 | XMS_ITS | Clinical Summary ---
Author Organization [facility] Address [address] [place] [address] Care Team Providers Care Eco Industrial Development Consultant Name Role Phone Sandie Zamudio MD Unavailable [phone] Source Comments [facility],non-owned Affiliates and Associated Physician Practices is amultiple site organization consisting of ambulatory clinics and hospital sitesin [place], [place]. This disclosure is being madepursuant to the [...] well Assessment & Plan (08/23/2014 4:21 PM DATABASE PROGRAMMER): Last Depo shot was June 03. Denies [...] been regular and she has no questions. [facility] (well child check) 03/31/2011 Overview (06/01/2013): [...] Telephone [facility] - ELEMENTARY TUTOR [address] [address] Kelsey Lombardi MD Appointment [...] on file Legal Sex Female 5:41 AM DATABASE PROGRAMMER Gender Identity Not on file Sexual Orientation Not on file Last Filed Vital Signs Vital Sign Reading Time Taken Comments Blood Pressure 104/47 10/21/2024 8:26 AM DATABASE PROGRAMMER Pulse 92 10/21/2024 8:26 AM DATABASE PROGRAMMER Temperature 36.1 C (97 F) 10/21/2024 8:26 AM DATABASE PROGRAMMER Respiratory Rate 16 10/21/2024 8:26 AM DATABASE PROGRAMMER Oxygen Saturation 98% 10/21/2024 8:26 AM DATABASE PROGRAMMER Inhaled Oxygen Concentration - - Weight 69.9 kg (154 lb) 10/21/2024 8:26 AM DATABASE PROGRAMMER Height 157.5 cm (5' 2 ) 10/21/2024 8:26 AM DATABASE PROGRAMMER Body Mass Index 28.17 10/21/2024 8:26 AM DATABASE PROGRAMMER Plan of Treatment Health Maintenance Due Date [...] Probe Negative Negative 12/01/2020 1:38 PM CDT [facility] GC Amplified Probe Negative Negative 12/01/2020 1:38 PM CDT [facility] Microbiology ENTIRE VAGINA / Unknown Collection / Unknown 11/30/2020 5:07 PM CDT 11/30/2020 5:12 PM CDT Narrative [facility] - 12/01/2020 1:38 PM CDT Results based on detection/no detection of ribosomal RNA by amplified method. us Deepa Robles MD LAB - MICROBIOLOGY ORDERABL ES Final Result [facility] [address] [place], [place] [address] [phone] from Last 3 Months or Most Recently Relevant to Health Maintenance Insurance [facility] Advance Directives * Full Code (Latest Code [...] 4:14 PM 11/30/2020 6:30 PM Care Teams Eco Industrial Development Consultant Relationship Specialty Start Date End Date Sandie Zamudio MD Resident Student Resident 03/27/15
--- OUTSIDE RECORDS SUMMARY | 2025-02-01 12:51 | XMS_ITS | Clinical Summary ---
Author Organization [facility] Address [address] [place] [address] Care Team Providers Care Pharmacy Customer Care Specialist Name Role Phone No, Physician Primary Care Provider [phone] Allergies No known active allergies Medications No [...] 02/25/2020, 02/2015, 05/24/2014, Additional history exists Insurance [facility] Care Teams Pharmacy Customer Care Specialist Relationship Specialty Start Date End Date No, Physician PCP - General 03/24/23
--- OUTSIDE RECORDS SUMMARY | 2025-02-01 12:51 | XMS_ITS | Referral Summary ---
Author Organization [facility] Address [address] [place] [address] Care Team Providers Care Paste Up Artist Name Role Phone No, Physician Primary Care Provider [phone] Allergies No known active allergies Medications No [...] Plan of Treatment Not on file Insurance [facility] [address] [address] Care Teams Paste Up Artist Relationship Specialty Start Date End Date No, Physician PCP - General 03/24/23
--- OUTSIDE RECORDS SUMMARY | 2025-02-01 12:51 | XMS_ITS | Clinical Summary ---
Author Organization [facility] Address [address] [place] [address] Care Team Providers Care Inside Horticultural Specialty Grower Name Role Phone Sandie Zamudio MD Unavailable [phone] Source Comments [facility],non-owned Affiliates and Associated Physician Practices is amultiple site organization consisting of ambulatory clinics and hospital sitesin [place], [place], [place] and [place]. This disclosure is being madepursuant to the Care Everywhere program and may not contain all information available regarding this patient. Last updated 18.[facility] Allergies No known active allergies Medications [...] well Assessment & Plan (08/23/2014 4:21 PM BAG FILLER): Last Depo shot was June 03. Denies [...] been regular and she has no questions. [facility] (well child check) 03/31/2011 Overview (06/01/2013): [...] Type Department Care Team Description 01/28/2025 Telephone [facility] - MANUAL TESTER [address] [address] Kelsey Lombardi MD Appointment [...] on file Legal Sex Female 5:41 AM BAG FILLER Gender Identity Not on file Sexual Orientation Not on file Last Filed Vital Signs Vital Sign Reading Time Taken Comments Blood Pressure 104/47 10/21/2024 8:26 AM BAG FILLER Pulse 92 10/21/2024 8:26 AM BAG FILLER Temperature 36.1 C (97 F) 10/21/2024 8:26 AM BAG FILLER Respiratory Rate 16 10/21/2024 8:26 AM BAG FILLER Oxygen Saturation 98% 10/21/2024 8:26 AM BAG FILLER Inhaled Oxygen Concentration - - Weight 69.9 kg (154 lb) 10/21/2024 8:26 AM BAG FILLER Height 157.5 cm (5' 2 ) 10/21/2024 8:26 AM BAG FILLER Body Mass Index 28.17 10/21/2024 8:26 AM BAG FILLER Plan of Treatment Health Maintenance Due Date [...] Probe Negative Negative 12/01/2020 1:38 PM CDT [facility] GC Amplified Probe Negative Negative 12/01/2020 1:38 PM CDT [facility] Microbiology ENTIRE VAGINA / Unknown Collection / Unknown 11/30/2020 5:07 PM CDT 11/30/2020 5:12 PM CDT Narrative [facility] - 12/01/2020 1:38 PM CDT Results based on detection/no detection of ribosomal RNA by amplified method. us Deepa Robles MD LAB - MICROBIOLOGY ORDERABL ES Final Result [facility] [address] [place], [place] [address] [phone] from Last 3 Months or Most Recently Relevant to Health Maintenance Insurance [facility] Advance Directives * Full Code (Latest [...] 4:14 PM 11/30/2020 6:30 PM Care Teams Inside Horticultural Specialty Grower Relationship Specialty Start Date End Date Sandie Zamudio MD Resident Student Resident 03/27/15
--- OUTSIDE RECORDS SUMMARY | 2025-02-01 12:51 | XMS_ITS | Encounter Summary ---
Author Organization [facility] Address [address] [place] [address] Care Team Providers Care Bar Gauger And Lubricator Tender Name Role Phone Sandie Zamudio MD Unavailable [phone] Alina Moralez MD Primary Care Provider Nate Sood MD Unavailable [phone] Encounter Details Date Type Department Care Team (Late st Contact Info) Description 11/19/2015 Telephone [facility] - [facility] [address] [place] [address] Alina Moralez MD [address] [place] [address] Social History Tobacco Use Types Packs/Day Years Used Date Smoking Tobacco: Never Assessed Comments Unknown Sex and Gender Information Value Date Recorded Sex Assigned at Not on file Legal Sex Female 5:41 AM SCHOOL LEADER Gender Identity Not on file Sexual Orientation Not on file documented as of this encounter Plan of Treatment Not on file documented as of this encounter Visit Diagnoses Not on filedocumented in this encounter Additional Health Concerns Infection Onset Date Last Indicated Resolved Time COVID-19 Under Investigation 10/21/2024 10/21/202410/2110/21/2024 9:51 AM SCHOOL LEADER documented as of this encounter Care Teams Bar Gauger And Lubricator Tender Relationship Specialty Start Date End Date Alina Moralez MD [address] [place] [address] PCP - General 08/19/22 10/20/24 Nate Sood MD [address] [place] [address] PCP - Attributed-[place] Medicaid SOIL 11/10/22 08/29/23 Sandie Zamudio MD Resident Student Resident 03/27/15 documented as of this encounter
--- NOTE | 2025-02-01 13:17 | ED.PREGNANCY ---
HPI - General Chief complaint: BILLIARD [employer] MECH[employer]IC Stated complaint: 5 weeks preg -bleeding and cramping Time Seen by Provider: 02/01/25 12:24 History of Present Illness HPI Narrative: Patient is a 24-year-old female who presents to the ER with complaints of vaginal bleeding and abdominal cramping. She reports she is approximately 5 weeks and her last menstrual period was December 27, 2024. Patient reports this is her 3rd , her 1st ended in a miscarriage and her 2nd was full term. She denies any medical history relevant to this ER visit. Patient reports she does not have an OBGYN yet but she does have a ultrasound schedule for next week. Related Data Allergies Allergy/AdvReac Type Severity Reaction Status Date / Time No Known Allergies Allergy Verified 01/30/25 03:08 Review of Systems Review of Systems: All systems reviewed & are unremarkable except as noted in HPI and below PMFSH Past Medical History Medical History Healthy female adult Surgical History Surgical History No history of previous surgery Social History Social History Smoking status: Never smoker Alcohol intake: former Substance use: current Substance use type: marijuana Do You Feel Safe in your Home?: Yes Lack of Transportation: No Lack of Food: Never True Current Housing: I Have Housing Concerned About Future Housing: No Difficulty Paying Gas/Electric Bills: No Difficulty Paying for Meds: No Currently Unemployed: No Education: High School Diploma/GED Difficulty w/ Childcare or Family Care: No Living arrangements: with family Occupation/Education: student Gender identity (if verbalized by the patient): Female Spiritual care concerns: No Exam Narrative: GENERAL: Well appearing, well-nourished, non-toxic, in no acute distress. HEAD: Normocephalic, atraumatic. NECK: Supple. No adenopathy, no masses. RESPIRATORY: Airway patent, respirations nonlabored. Clear to auscultation bilaterally, no rales, rhonchi, wheezing. CARDIOVASCULAR: Regular rate and rhythm without murmurs, rubs, or gallops. Peripheral pulses 2+ and equal bilaterally. ABDOMINAL: Soft, + tender bilateral upper quadrants, nondistended, no hepatosplenomegaly. Normoactive BS. MUSCULOSKELETAL: Moves all extremities. Strength/ROM intact without gross deformities. SKIN: Warm, dry, normal color. No rashes. NEURO: A&O X3. Speech clear. Cranial nerves II-XII intact. No ataxic movements. PSYCHIATRIC: Flat affect, tearful. *Pt declined a vaginal exam. Course Vital Signs Vital signs: Vital Signs Temperature 36.4 C 02/01/25 12:07 Pulse Rate 102 H 02/01/25 12:07 Respiratory Rate 18 02/01/25 12:07 Blood Pressure 101/63 02/01/25 12:07 Pulse Oximetry 100 02/01/25 12:07 Oxygen Delivery Room Air 02/01/25 12:07 Temperature 36.4 C 02/01/25 12:07 Pulse Rate 102 H 02/01/25 12:07 Respiratory Rate 18 02/01/25 12:07 Blood Pressure 101/63 02/01/25 12:07 Pulse Oximetry 100 02/01/25 12:07 Oxygen Delivery Room Air 02/01/25 12:07 MDM - OB/Uterine Contractions MDM Narrative Medical decision making narrative: Patient is a 24-year-old female who presents to the ER with complaints of vaginal bleeding and abdominal cramping. She reports she is approximately 5 weeks and her last menstrual period was December 27, 2024. Patient reports this is her 3rd , her 1st ended in a miscarriage and her 2nd was full term. She denies any medical history relevant to this ER visit. Patient reports she does not have an OBGYN yet but she does have a ultrasound schedule for next week. Labs Ordered: CBC, CMP, beta hCG, UA, INR, PTT Imaging Ordered: Ultrasound Ob less than 14 weeks Medications Ordered: 1 L normal saline IV bolus Results: Patient's ultrasound indicates No evident intrauterine gestational sac. There is a 5 mm cystic lesion at the cervix which without evident internal yolk sac or double deciduous sign to suggest ectopic in this more likely to represent a nabothian cyst. Recommend correlation with serial beta-hCG levels with repeat imaging as clinically indicated. Diagnosis: Early , threatened Consults: OBGYN (outpatient) Patient Education/Shared MDM: Results of lab work and imaging shared with patient. She was offered a vaginal examination for further evaluatoin, but pt declined. Patient strongly advised to maintain hydration status upon discharge. She should follow-up with an OBGYN as soon as possible for repeat HCG levels. Pt will be discharged home with a prescription for vitamins, per her request. Strict return precautions provided. Patient verbalized understanding and is in agreement with plan. Vital signs stable at time of discharge. All questions answered. Differential Diagnosis Differential diagnosis: Likely other (UTI, intrauterine , threatened ) Lab Data Attestation: I reviewed the patient's lab results. 02/01/25 13:11 02/01/25 13:11 Labs: Lab Results 02/01/25 02/01/25 02/01/25 Range/Units 13:11 13:45 13:47 WBC 8.1 (4.5-10.0) K/mm3 RBC 4.91 (4.2-5.4) M/mm3 Hgb 13.0 D (12.0-15.0) g/dL Hct 40.8 (37.0-47.0) % MCV 83.1 (80-100) fl MCH 26.5 (26-34) pg MCHC 31.9 L (32-36) g/dl RDW 13.6 (11.5-14.5) % Plt Count 377 H D (150-375) k/mm3 MPV 9.4 (7.4-10.4) fl Immature Gran % (Auto) 0.2 (0-0.5) % Neut % (Auto) 55.8 (45.5-73.1) % Lymph % (Auto) 38.1 (18.3-44.2) % [place] % (Auto) 4.9 (2.6-8.5) % Eos % (Auto) 0.6 (0-4.4) % Baso % (Auto) 0.4 (0.2-1.2) % Lymph # (Auto) 3.09 (0.9-3.2) K/mm3 [place] # (Auto) 0.4 (0.1-0.6) K/mm3 Eos # (Auto) 0.1 (0-0.3) K/mm3 Baso # (Auto) 0.0 (0.0-0.1) K/mm3 Abs Immat Gran (auto) 0.02 (0.00-0.031) K/mm3 Absolute Neuts (auto) 4.5 (1.3-6.7) K/mm3 Absolute Nucleated RBC 0.000 (0.0-0.012) K/mm3 Nucleated RBC % 0.0 (0.0-0.2) % PT 14.2 (11.1-14.7) Seconds INR 1.0 APTT 27.7 (22.3-36.8) Seconds Sodium 138 (137-145) mmol/L Potassium 3.8 (3.4-5.0) mmol/L Chloride 104 (98-107) mmol/L Carbon Dioxide 23 (22-30) mmol/L Anion Gap 11 (4-12) mmol/L BUN 8 (7-17) mg/dL Creatinine 0.64 L (0.7-1.0) mg/dL Estim Creat Clear Calc 109 ml/min Estimated GFR > 60 (59 - ) Glucose 84 (65-110) mg/dL Calcium 9.3 (8.4-10.2) mg/dL Total Bilirubin 0.9 (0.2-1.3) mg/dL AST 28 (14-36) U/L ALT 13 (6-35) U/L Alkaline Phosphatase 79 (38-126) U/L Total Protein 8.0 (6.3-8.2) g/dL Albumin 4.6 (3.5-5.1) g/dL Beta HCG, Quant 373.19 mIU/ML Urine Color Dark yellow (Yellow) Urine Appearance Cloudy H (Clear) Urine pH 6.0 (5.0-9.0) Ur Specific [place] 1.032 (1.001-1.035) Urine Protein 1+ H (Negative) mg/dL Urine Glucose (UA) Negative (Negative) mg/dL Urine Ketones 3+ H (Negative) mg/dL Ur Blood (Man) 3+ H (Negative) Urine Nitrate Negative (Negative) Urine Bilirubin Negative (Negative) Urine Urobilinogen 4.0 H (<2.0) mg/dL Add Ur Microanalysis Reviewed Leukocyte Esterase Rfl 1+ H (Negative) RADHA/UL Urine RBC 11-20 H (0-2) /hpf Urine WBC 0-5 (0-3) /hpf Ur Squamous Epith Cells Many H (Few) /hpf Urine Bacteria Rare /hpf Urine Casts 0-2 Urine Mucus Present /lpf POC Urine HCG, Qual Positive (Negative) Imaging Data Attestation: I personally reviewed and interpreted this imaging study as follows: Radiologist's impression: Impressions Obstetrics Ultrasound 02/01/25 14:00 IMPRESSION: 1. No evident intrauterine gestational sac. There is a 5 mm cystic lesion at the cervix which without evident internal yolk sac or double deciduous sign to suggest ectopic in this more likely to represent a nabothian cyst. Recommend correlation with serial beta-hCG levels with repeat imaging as clinically indicated. Discharge Plan Discharge Clinical Impression: , threatened, Bleeding in early Patient Disposition: Home Condition: Stable Instructions: Antibiotic Form, Threatened Miscarriage (ED), Abdominal Pain in (ED) Additional Instructions: Please return to the ER with any worsening symptoms. Follow-up with OBGYN as soon as possible. They may want to have your blood drawn to check your levels. Take all regularly scheduled medications, including your vitamin every day. Patient Language: Danish Prescriptions: New PNV cmb#[id number] fumarate-FA [] 28 mg iron- 800 mcg tablet 1 tablet PO DAILY Qty: 60 0RF No Action acetaminophen 500 mg capsule 500 mg PO Q6H PRN (Reason: pain) Qty: 14 0RF Follow-up/Referrals: Niko Palomino MD [Physician] - (OBGYN) Alexander Torres MD [Physician] - (OBGYN) UNKNOWN,DOCTOR [Primary Care Provider] - Time of Disposition: 15:25
--- NOTE | 2025-02-01 13:19 | PC.NURSE ---
pt to ultrasound at this time
[2025-02-01 13:21] LABS: Basophils Percent Auto 0.4 % (0.2-1.2); Eosinophils Absolute Auto 0.1 K/mm3 (0-0.3); Eosinophils Percent Auto 0.6 % (0-4.4); Hematocrit 40.8 % (37.0-47.0); Immature Granulocyte Absolute 0.02 K/mm3 (0.00-0.031); Immature Granulocyte Percent A 0.2 % (0-0.5); Lymphocytes Absolute Auto 3.09 K/mm3 (0.9-3.2); Lymphocytes Percent Auto 38.1 % (18.3-44.2); Mean Corpuscular HGB Conc 31.9 g/dl (32-36); Mean Corpuscular Hemoglobin 26.5 pg (26-34); Mean Corpuscular Volume 83.1 fl (80-100); Mean Platelet Volume 9.4 fl (7.4-10.4); Monocytes Absolute Auto 0.4 K/mm3 (0.1-0.6); Monocytes Percent Auto 4.9 % (2.6-8.5); Neutrophils Absolute Auto 4.5 K/mm3 (1.3-6.7); Neutrophils Percent Auto 55.8 % (45.5-73.1); Platelet Count Result 377 k/mm3 (150-375); Red Blood Count 4.91 M/mm3 (4.2-5.4); Red Cell Distribution Width 13.6 % (11.5-14.5); White Blood Count 8.1 K/mm3 (4.5-10.0)
[2025-02-01 13:35] LABS: Alanine Aminotransferase 13 U/L (6-35); Albumin Level 4.6 g/dL (3.5-5.1); Alkaline Phosphatase 79 U/L (38-126); Anion Gap 11 mmol/L (4-12); Aspartate Amino Transferase 28 U/L (14-36); Bilirubin,Total 0.9 mg/dL (0.2-1.3); Blood Urea Nitrogen 8 mg/dL (7-17); Calcium 9.3 mg/dL (8.4-10.2); Carbon Dioxide 23 mmol/L (22-30); Chloride 104 mmol/L (98-107); Estimated CRCL calculation 109 ml/min; Estimated Glomerular Filt Rate > 60; Glucose 84 mg/dL (65-110); Potassium 3.8 mmol/L (3.4-5.0); Sodium 138 mmol/L (137-145)
[2025-02-01] MEDS: SODIUM CHLORIDE 0.9% IV 1,000 ML 999 ML IV CONT (13:45)
[2025-02-01 13:48] LABS: BEDSIDEPREGUCG Positive (Negative)
[2025-02-01 13:52] LABS: Prothrombin Time 14.2 Seconds (11.1-14.7)
[2025-02-01 13:53] LABS: Partial Thromboplastin Time 27.7 Seconds (22.3-36.8)
[2025-02-01 14:00] LABS: Beta HCG Quantitative 373.19 mIU/ML
[2025-02-01 14:32] LABS: Add Urine Microscopic? YES; Appearance Urine Cloudy (Clear); Bacteria Urine Rare /hpf; Bilirubin Urine Negative (Negative); Blood Urine 3+ (Negative); Color Urine Dark Yellow (Yellow); Glucose Urine UA Negative (Negative); Ketones Urine 3+ mg/dL (Negative); Leukocyte Esterase Ur 1+ LEU/UL (Negative); Mucus Urine Present /lpf; Need Manual Microscopic Reviewed; Nitrate Urine Negative (Negative); Non Pathogenic Casts 0-2; Protein Urine 1+ mg/dL (Negative); Specific Grav Ur 1.032 (1.001-1.035); Squamous Epithelial Cell Urine Many /hpf (Few); WBC Urine 0-5 /hpf (0-3)
== END 2025-02-01 15:35 | disposition home or self-care (01) ==
PROVIDERS: Emergency Provider Registered Nurse
DX: O20.0 Threatened abortion (principal); Z3A.01 Less than 8 weeks gestation of pregnancy
CPT/HCPCS: 36415; 76801; 76817; 80053; 81001; 81025; 84702; 85025; 85610; 85730; 96360; 99284; J7030